=== PATIENT | female | born 1935 | race Caucasian/White ===

== ENCOUNTER → 2016-09-06 | Outpatient (CLI) | payer MEDICARE, OTHER ==
--- NOTE | 2016-09-09 07:28 | OR ---
ADMIT: 09/06/2016 RM/LOC: [facility] MR#: [id number] [id number] [address]ARCIA, [address] [address] Operative/Delivery Room Report SEX: F AGE: 81 : 1935 SURGERY DATE: 09/06/2016 SURGEON: Patrice Olsen MD PREOPERATIVE DIAGNOSIS: Right shoulder arthritis. POSTOPERATIVE DIAGNOSIS: Right shoulder arthritis. PROCEDURE PERFORMED: Fluoroscopic guided glenohumeral joint injection on the right. Injected 8 of lidocaine 1% without epinephrine and 2 mL of Kenalog 40 mg/mL. COMPLICATIONS: None. INDICATION: Nathan has right shoulder arthritis with just a small rotator cuff tear. We discussed options including doing nothing, doing a shoulder replacement, or just do injections. I recommended we just try an injection to see if we can get her by because she does not have great health, and so it would be pretty rough to do a shoulder replacement, so I recommended doing that under fluoroscopy, and she is here for that now. DESCRIPTION OF PROCEDURE: The patient was identified in the fluoroscopy suite. A time-out was performed. I prepped with alcohol and then brought fluoroscopy. I identified a starting point that would get me intra-articular, put the needle intra-articular, and then injected a solution of 8 mL lidocaine 1%, and then 2 mL of Kenalog 40 mg per, and she tolerated that well. Put a Band-Aid on. Postoperatively, I will just see her back in about 6 weeks to 3 months to see how well that helped her. Patrice Olsen MD/ daysi JOB #: [id number] CC: Patrice Olsen, Attending Physician Terry Reeves, Family Physician
== END | disposition home or self-care (01) ==
LOC: RAD.S 09:19
DX: M25.511 Pain in right shoulder (principal); M19.011 Primary osteoarthritis, right shoulder